=== PATIENT | female | born 1960 | race Caucasian/White ===

== ENCOUNTER 2016-07-25 17:05 | Emergency (ER) | payer OTHER ==
[~2016-07-25 17:05] MED LIST changes: -AMBIEN5 M1 PO; -IBU800 M1 PO; -PERCOCET 325 MG1 TA2 PO; -SKELAXIN 800MG800 MG PO
[2016-07-25] MEDS ORDERED: AMBIEN5 M1 PO (17:14)
[2016-07-25] MEDS ORDERED: NORCO 325 MG-51 TAB PO (18:22)
[2016-07-25 20:17] VITALS: BP 114/62
== END 2016-07-25 20:17 | disposition home or self-care (01) ==
LOC: ED 17:05
DX: R30.0 Dysuria (principal); Z00.01 Encounter for general adult medical examination with abnormal findings; N20.0 Calculus of kidney; Z87.442 Personal history of urinary calculi; R94.5 Abnormal results of liver function studies; R10.32 Left lower quadrant pain; R10.11 Right upper quadrant pain
CPT/HCPCS: J1885; J2270; J2405; J7030; Q9965; Q9967

== ENCOUNTER → 2016-07-25 | Outpatient (CLI) | payer OTHER ==
[2014-09-03 21:38] VITALS: BP 126/77
[~2016-07-25] MED LIST: AMBIEN5 M1 PO; FLEXERIL10 MG PO; GOOD SENSE OMEP20 MG PO; IBU800 M1 PO; IMITREX100 MG PO; LORATADINE10 MG PO; MOTRIN 200200 MG/TAB PO; NORCO 325 MG-51 TAB PO; PERCOCET 325 MG1 TA2 PO; SKELAXIN 800MG800 MG PO; ZOFRAN ODT8 MG PO; ZYRTEC10 MG PO
== END ==
LOC: LAB 14:57
DX: M54.5 Low back pain (principal)

== ENCOUNTER 2016-08-07 10:20 | Emergency (ER) | payer OTHER ==
[~2016-08-07] VITALS: Ht 157.5 cm; Wt 62.7 kg
[~2016-08-07 10:20] MED LIST changes: +AMBIEN5 M1 PO
[2016-08-07] MEDS ORDERED: SKELAXIN 800MG800 MG PO (12:32)
[2016-08-07] MEDS ORDERED: PERCOCET 325 MG1 TA2 PO (12:32)
[2016-08-07] MEDS ORDERED: IBU800 M1 PO (12:32)
[2016-08-07 12:42] VITALS: BP 126/77
== END 2016-08-07 12:55 | disposition home or self-care (01) ==
LOC: ED 10:20
DX: R10.12 Left upper quadrant pain (principal); R10.32 Left lower quadrant pain; Z87.442 Personal history of urinary calculi; M54.5 Low back pain; M79.9 Soft tissue disorder, unspecified
CPT/HCPCS: J1885; Q9967

== ENCOUNTER 2017-11-25 10:32 | Emergency (ER) | payer SELFPAY ==
[~2017-11-25] VITALS: Ht 154.9 cm; Wt 63.6 kg
[~2017-11-25 10:32] MED LIST changes: +ESTRACE0.5 MG PO; +IBU800 M1 PO; +KETOROLAC10 MG PO; +OXYCODONE PO; +PERCOCET 325 MG1 TA2 PO; +PROGESTERONE100 M1 PO; +PROTONIX20 M1 PO; +SKELAXIN 800MG800 MG PO; +ZANTAC150 M1 PO; +ZOFRAN ODT8 M1 PO
[2017-11-25 10:44] VITALS: BP 132/67
[2017-11-25] MEDS ORDERED: CIPRO 500MG TA500 MG PO (10:46)
[2017-11-25] MEDS ORDERED: METRONIDAZOLE500 M1 PO (10:46)
[2017-11-25] MEDS ORDERED: MAGIC MOUTHWASH1 M1 PO (10:59)
== END 2017-11-25 11:03 | disposition home or self-care (01) ==
LOC: ED 10:32
DX: K13.79 Other lesions of oral mucosa (principal); K08.109 Complete loss of teeth, unspecified cause, unspecified class; Z79.899 Other long term (current) drug therapy; Z79.890 Hormone replacement therapy

== ENCOUNTER 2018-03-05 19:06 | Emergency (ER) | payer SELFPAY ==
[~2018-03-05 19:06] MED LIST changes: +CIPRO 500MG TA500 MG PO; +MAGIC MOUTHWASH1 M1 PO; +METRONIDAZOLE500 M1 PO
[2018-03-05] MEDS ORDERED: CYCLOBENZAPRINE10 M1 PO (19:20)
[2018-03-05] MEDS ORDERED: NEURONTIN300 MG/CAP PO (19:20)
[2018-03-05 20:12] LABS: URINE APPEARANCE CLEAR; URINE BILIRUBIN NEGATIVE (NEGATIVE); URINE BLOOD 50 ery/uL (NEGATIVE); URINE COLOR YELLOW; URINE GLUCOSE NEGATIVE (NEGATIVE); URINE KETONE NEGATIVE (NEGATIVE); URINE LEUKOCYTE ESTERASE TRACE (NEGATIVE); URINE NITRATE NEGATIVE (NEGATIVE); URINE PROTEIN(semi-quant) NEGATIVE (NEGATIVE); URINE UROBILINOGEN NORMAL (NORMAL); URINE WBC 0-1 /hpf (0-3)
[2018-03-05] MEDS ORDERED: PREDNISONE10 MG PO (20:18)
[2018-03-05 20:25] VITALS: BP 130/81
[2018-03-05] MEDS ORDERED: EC-NAPROSYN500 MG PO (20:28)
== END 2018-03-05 20:26 | disposition home or self-care (01) ==
LOC: ED 19:06
PROVIDERS: Nurse Practitioner Family
DX: M54.16 Radiculopathy, lumbar region (principal); G89.29 Other chronic pain; Z88.5 Allergy status to narcotic agent; Z79.899 Other long term (current) drug therapy; K31.84 Gastroparesis
CPT/HCPCS: J1885; J7512

== ENCOUNTER 2018-03-09 18:05 | Emergency (ER) | payer SELFPAY ==
[~2018-03-09] VITALS: Ht 154.9 cm; Wt 73.2 kg
[~2018-03-09 18:05] MED LIST changes: +CYCLOBENZAPRINE10 M1 PO; +EC-NAPROSYN500 MG PO; +NEURONTIN300 MG/CAP PO; +PREDNISONE10 MG PO
[2018-03-09 19:37] VITALS: BP 133/73
== END 2018-03-09 19:37 | disposition home or self-care (01) ==
LOC: ED 18:05
DX: M54.5 Low back pain (principal); M54.16 Radiculopathy, lumbar region; Z79.899 Other long term (current) drug therapy; M62.830 Muscle spasm of back; K21.9 Gastro-esophageal reflux disease without esophagitis; K31.84 Gastroparesis; Z79.890 Hormone replacement therapy; Z88.5 Allergy status to narcotic agent
CPT/HCPCS: J1885; J2360

== ENCOUNTER 2018-03-14 11:13 | Emergency (ER) | payer SELFPAY ==
[~2018-03-14] VITALS: Ht 154.9 cm; Wt 72.3 kg
[2018-03-14] MEDS ORDERED: REGLAN5 M1 PO (11:25)
[2018-03-14 11:52] LABS: URINE WBC 0 /hpf (0-3)
[2018-03-14 11:55] LABS: HEMOGLOBIN 12.3 g/dL (12.5-16.0); MEAN CELL VOLUME 89 fl (78-100); MEAN CORPUSCULAR HEMOGLOBIN 29 pg (27-31); MEAN CORPUSCULAR HGB CONC 32 g/dL (33-37); MEAN PLATELET VOLUME 9.6 fl (7.4-10.4); PLATELET COUNT 295 K/mm3 (130-400); RED BLOOD COUNT 4.27 M/mm3 (4.10-5.30)
[2018-03-14 12:05] LABS: URINE APPEARANCE CLEAR; URINE BILIRUBIN NEGATIVE (NEGATIVE); URINE BLOOD NEGATIVE (NEGATIVE); URINE COLOR YELLOW; URINE GLUCOSE NEGATIVE (NEGATIVE); URINE KETONE NEGATIVE (NEGATIVE); URINE LEUKOCYTE ESTERASE NEGATIVE (NEGATIVE); URINE NITRATE NEGATIVE (NEGATIVE); URINE PROTEIN(semi-quant) NEGATIVE (NEGATIVE); URINE UROBILINOGEN NORMAL (NORMAL)
[2018-03-14 12:12] LABS: BAND 1 % (0-10); LYMPHOCYTE 9 % (20-51); MONOCYTE 2 % (3-10); NEUTROPHILS 88 % (42-75)
[2018-03-14 14:51] LABS: ALBUMIN 4.2 g/dL (3.5-5.0); CALCIUM 9.2 mg/dL (8.4-10.2); POTASSIUM 4.3 mmol/L (3.6-5.0); TOTAL BILIRUBIN 0.3 mg/dL (0.2-1.3); TOTAL PROTEIN 6.6 g/dL (6.3-8.2)
[2018-03-14 16:55] VITALS: BP 158/92
== END 2018-03-14 16:56 | disposition home or self-care (01) ==
LOC: ED 11:13
PROVIDERS: Family Medicine
DX: M54.16 Radiculopathy, lumbar region (principal); K59.00 Constipation, unspecified; K29.70 Gastritis, unspecified, without bleeding; F10.21 Alcohol dependence, in remission; F31.9 Bipolar disorder, unspecified; Z87.19 Personal history of other diseases of the digestive system; Z90.49 Acquired absence of other specified parts of digestive tract; Z79.899 Other long term (current) drug therapy
CPT/HCPCS: C9113; J0595; J1885; J2360

== ENCOUNTER 2019-02-13 07:01 | Emergency (ER) | payer SELFPAY ==
[~2019-02-13 07:01] MED LIST changes: +REGLAN5 M1 PO
[2019-02-13 08:53] VITALS: BP 133/86
== END 2019-02-13 09:20 | disposition home or self-care (01) ==
LOC: ED 07:01
DX: G43.909 Migraine, unspecified, not intractable, without status migrainosus (principal); K21.9 Gastro-esophageal reflux disease without esophagitis; G47.00 Insomnia, unspecified; Z88.6 Allergy status to analgesic agent
CPT/HCPCS: J1885; J2360; J2550

== ENCOUNTER 2019-03-20 04:59 | Emergency (ER) | payer OTHER ==
[~2019-03-20] VITALS: Ht 154.9 cm; Wt 72.7 kg
[2019-03-20] MEDS ORDERED: LEVOTHYROXINE0.05 MG PO (05:13)
[2019-03-20] MEDS ORDERED: AMITRIPTYLINE H75 M1 PO (05:13)
[2019-03-20] MEDS ORDERED: VITAMIN D50000 I2 PO (05:13)
[2019-03-20] MEDS ORDERED: MAGNESIUM400 MG PO (05:14)
[2019-03-20] MEDS ORDERED: PHARMASSURE MA500 MG PO (05:14)
[2019-03-20 05:59] LABS: BASO # 0.1 (0.02-0.10); EOS # 0.3 (0.04-0.40); EOS % 6.3 % (1.0-5.0); HEMATOCRIT 37.7 % (37.0-47.0); HEMOGLOBIN 11.8 g/dL (12.5-16.0); LYMPH# 1.1 (1.50-4.00); MEAN CELL VOLUME 85 fl (78-100); MEAN CORPUSCULAR HEMOGLOBIN 27 pg (27-31); MEAN CORPUSCULAR HGB CONC 31 g/dL (33-37); MEAN PLATELET VOLUME 9.5 fl (7.4-10.4); MONO # 0.5 (0.20-0.80); NEU # 3.2 (1.40-6.50); PLATELET COUNT 337 K/mm3 (130-400); RED BLOOD COUNT 4.44 M/mm3 (4.10-5.30); RED CELL DISTRIBUTION WIDTH 13.7 % (11.5-14.5); WHITE BLOOD COUNT 5.2 K/mm3 (4.8-10.8)
[2019-03-20] MEDS ORDERED: CVS TUSSIN CF118 M2 PO (06:24)
[2019-03-20] MEDS ORDERED: AMOXICILLIN 50500 MG PO (06:24)
[2019-03-20 06:32] VITALS: BP 129/84
== END 2019-03-20 06:32 | disposition home or self-care (01) ==
LOC: ED 04:59
PROVIDERS: Family Medicine
DX: K12.0 Recurrent oral aphthae (principal); J06.9 Acute upper respiratory infection, unspecified; R51 Headache; F31.9 Bipolar disorder, unspecified; Z87.19 Personal history of other diseases of the digestive system; Z90.710 Acquired absence of both cervix and uterus; Z87.891 Personal history of nicotine dependence; Z98.890 Other specified postprocedural states

== ENCOUNTER 2022-01-16 10:31 | Emergency (ER) | payer MEDICAID ==
[~2022-01-16] VITALS: Ht 154.9 cm; Wt 72.1 kg
[~2022-01-16 10:31] MED LIST changes: +AMITRIPTYLINE H75 M1 PO; +AMOXICILLIN 50500 MG PO; +CVS TUSSIN CF118 M2 PO; +LEVOTHYROXINE0.05 MG PO; +MAGNESIUM400 MG PO; +PHARMASSURE MA500 MG PO; +VITAMIN D50000 I2 PO
[2022-01-16] MEDS ORDERED: IBU800 M1 PO (10:53)
[2022-01-16] MEDS ORDERED: SINGULAIR 110 MG/TAB PO (10:54)
[2022-01-16] MEDS ORDERED: TIZANIDINE HYDRO4 MG PO (10:54)
[2022-01-16] MEDS ORDERED: ASPIRIN E.C. 8181 MG (10:55)
[2022-01-16 10:58] VITALS: BP 105/61
[2022-01-16 11:13] LABS: HEMOGLOBIN 13.3 g/dL (12.5-16.0); MEAN CELL VOLUME 88 fl (78-100); MEAN CORPUSCULAR HEMOGLOBIN 29 pg (27-31); MEAN CORPUSCULAR HGB CONC 33 g/dL (33-37); PLATELET COUNT 297 K/mm3 (130-400); RED BLOOD COUNT 4.57 M/mm3 (4.10-5.30); RED CELL DISTRIBUTION WIDTH 12.6 % (11.5-14.5); WHITE BLOOD COUNT 15.6 K/mm3 (4.8-10.8)
[2022-01-16 11:22] LABS: ALBUMIN 4.4 g/dL (3.4-4.8)
[2022-01-16 11:24] LABS: CALCIUM 9.4 mg/dL (8.3-10.5)
[2022-01-16 11:27] LABS: TOTAL BILIRUBIN 0.4 mg/dL (0.2-1.2)
[2022-01-16 12:40] LABS: URINE APPEARANCE CLEAR; URINE BILIRUBIN NEGATIVE (NEGATIVE); URINE BLOOD NEGATIVE (NEGATIVE); URINE COLOR YELLOW; URINE GLUCOSE NEGATIVE (NEGATIVE); URINE KETONE NEGATIVE (NEGATIVE); URINE LEUKOCYTE ESTERASE NEGATIVE (NEGATIVE); URINE NITRATE NEGATIVE (NEGATIVE); URINE PROTEIN(semi-quant) TRACE (NEGATIVE); URINE UROBILINOGEN NORMAL (NORMAL); URINE WBC 0-1 /hpf (0-3)
== END 2022-01-16 13:30 | disposition short-term general hospital (02) ==
LOC: ED 10:31
PROVIDERS: Physician Assistant
DX: K35.80 Unspecified acute appendicitis (principal); Z88.5 Allergy status to narcotic agent; Z90.49 Acquired absence of other specified parts of digestive tract; Z87.19 Personal history of other diseases of the digestive system
CPT/HCPCS: J2270; J2405; J7030; Q9967

== ENCOUNTER 2023-07-12 13:37 | Emergency (ER) | payer MEDICAID ==
[~2023-07-12] VITALS: Ht 2.5 cm; Wt 69.3 kg
[~2023-07-12 13:37] MED LIST changes: +ASPIRIN E.C. 8181 MG; +SINGULAIR 110 MG/TAB PO; +TIZANIDINE HYDRO4 MG PO
[2023-07-12 14:49] LABS: BASO # 0.05 K/mm3 (0.02-0.10); EOS # 0.33 K/mm3 (0.04-0.40); EOS % 5.2 % (1.0-5.0); HEMATOCRIT 38.3 % (37.0-47.0); HEMOGLOBIN 12.5 g/dL (12.5-16.0); LYMPH# 1.63 K/mm3 (1.50-4.00); MEAN CELL VOLUME 89 fl (78-100); MEAN CORPUSCULAR HEMOGLOBIN 29 pg (27-31); MEAN CORPUSCULAR HGB CONC 33 g/dL (33-37); MEAN PLATELET VOLUME 9.8 fl (7.4-10.4); MONO # 0.43 K/mm3 (0.20-0.80); NEU # 3.88 K/mm3 (1.40-6.50); PLATELET COUNT 259 K/mm3 (130-400); RED BLOOD COUNT 4.33 M/mm3 (4.10-5.30); WHITE BLOOD COUNT 6.3 K/mm3 (4.8-10.8)
[2023-07-12] MEDS ORDERED: FLUCONAZOLE200 MG PO (15:18)
[2023-07-12 15:43] VITALS: BP 115/75
== END 2023-07-12 15:45 | disposition home or self-care (01) ==
LOC: ED 13:37
PROVIDERS: Family Medicine
DX: J30.2 Other seasonal allergic rhinitis (principal)